=== PATIENT | female | born 1960 | race Caucasian/White ===

== ENCOUNTER 2017-04-10 13:51 | Emergency (ER) | payer MEDICAID ==
[~2017-04-10] VITALS: Ht 170.2 cm; Wt 84.4 kg
[2017-04-10 14:40] VITALS: BP 130/61; Ht 170.2 cm; Wt 84.4 kg
== END 2017-04-10 17:10 | disposition home or self-care (01) ==
LOC: ED 13:51
DX: R10.84 Generalized abdominal pain (principal); R11.10 Vomiting, unspecified